=== PATIENT | female | born 1990 | race American Indian/Alaskan Native ===

== ENCOUNTER 2017-01-27 14:36 | Outpatient (CLI) | payer MEDICAID ==
[2017-01-27] MEDS ORDERED: LACTATED RINGERS 1,000 ML IV ONE (14:37)
[2017-01-27 15:58] VITALS: BP 93/36
[2017-01-27 16:01] LABS: Bacteria,Urine 1+ /HPF (Negative); Bilirubin,Urine NEG (Negative); Blood,Urine NEG (Negative); Ketones,Urine NEG (Negative); Leukocyte Esterase,Urine NEG (Negative); Nitrite,Urine NEG (Negative); Protein,Urine <15 mg/dL mg/dL (Negative); Urobilinogen,Urine < 2.0 mg/dL (<2.0)
== END 2017-01-27 16:55 | disposition home or self-care (01) ==
LOC: TRG 14:36
PROVIDERS: ATTEND Obstetrics & Gynecology
DX: Z34.92 Encounter for supervision of normal pregnancy, unspecified, second trimester (principal); Z3A.25 25 weeks gestation of pregnancy
CPT/HCPCS: 81001

== ENCOUNTER 2017-05-07 14:04 | Inpatient (IN) | payer MEDICAID ==
[2017-05-07] MEDS ORDERED: STADOL IV PRN (15:32)
[2017-05-07] MEDS ORDERED: NUBAIN IV PRN (15:32)
[2017-05-07] MEDS ORDERED: BRETHINE SUB-Q PRN (15:32)
[2017-05-07] MEDS ORDERED: ePHEDrine SULFATE IV PRN (15:32)
[2017-05-07] MEDS ORDERED: BRETHINE IVP PRN (15:32)
[2017-05-07] MEDS ORDERED: MINERAL OIL PO PRN (15:32)
[2017-05-07] MEDS ORDERED: SUBLIMAZE IV PRN (15:32)
[2017-05-07] MEDS ORDERED: AMBIEN PO PRN (15:32)
[2017-05-07] MEDS ORDERED: PITOCin/NS 20 UNIT/1000ML DRIP 20 UNITS/1,000 ML BAG IV SCH (16:00)
[2017-05-07] MEDS ORDERED: CERVIDIL VG ONE (16:00)
[2017-05-07] MEDS ORDERED: XYLOCAINE 2% INFILTRATI ONE (16:00)
[2017-05-07] MEDS ORDERED: PITOCin/NS 30 UNIT/500ML 30 UNITS/500 ML BAG IV SCH (16:00)
[2017-05-07] MEDS ORDERED: POLYCILLIN/NS 2 GM/100 ML 2 GM/100 ML BAG IV ONE (16:30)
[2017-05-07 16:43] LABS: Hematocrit 33.1 % (30.3-42.9); Hemoglobin 11.1 gm/dl (10.1-14.3); Mean Corpuscular HGB Conc 34 % (30-34); Mean Corpuscular Hemoglobin 31 pg (28-32); Mean Corpuscular Volume 91 fl (79-97); Platelet Count 249 K/mm3 (140-440); Red Blood Count 3.62 M/mm3 (3.65-5.03); Red Cell Distribution Width 15.2 % (13.2-15.2)
[2017-05-07] MEDS: LACTATED RINGERS 1,000 ML IV SCH (17:16)
[2017-05-07] MEDS: POLYCILLIN/NS 1 GM/50 ML 1 GM/50 ML BAG IV SCH (21:24)
[2017-05-08] MEDS: SUBLIMAZE IV PRN ×3 (01:44→14:48)
[2017-05-08] MEDS: LACTATED RINGERS 1,000 ML IV SCH (01:47)
[2017-05-08] MEDS: POLYCILLIN/NS 1 GM/50 ML 1 GM/50 ML BAG IV SCH ×2 (02:25→08:30)
--- NOTE | 2017-05-08 08:18 | History and Physical Report ---
History of Present Illness Date of examination: 05/08/17 Date of admission: 05/07/17 14:04 History of present illness: 27 yo LMP EDC 05/09/17 @ 39.6 weeks gestation presented to office for routine visit 05/07 with c/o decreased FM. Elected to proceed with induction. First trimester transfer into care at 11 weeks gestation from [place]. Uncomplicated course. She is GBS positive and has received adequate treatment. Received Cervidil during the night. Now awaiting active Pitocin. Past History Past Medical History: no pertinent history Past Surgical History: no surgical history [employer] History: chlamydia Family/Genetic History: hypertension, cancer (breast) Social history: no significant social history, single - Obstetrical History Expected Date of Delivery: 05/09/17 Actual Gestation: 39 Week(s) 6 Day(s) : 2 Para: 1 Number of Living Children: 1 Medications and Allergies Allergies Allergy/AdvReac Type Severity Reaction Status Date / Time No Known Allergies Allergy Unverified 04/09/13 00:48 Home Medications Medication Instructions Recorded Confirmed Last Taken Type No Known Home Medications [No 05/08/17 05/08/17 Unknown History Reported Home Medications] Active Meds: Active Medications Butorphanol Tartrate (Stadol) 2 mg IV Q2H PRN PRN Reason: Pain , Severe (7-10) Ephedrine Sulfate (Ephedrine Sulfate) 10 mg IV Q2M PRN PRN Reason: Hypotension Fentanyl (Sublimaze) 100 mcg IV Q2H PRN PRN Reason: Labor pain Last Admin: 05/08/17 01:44 Dose: 100 mcg Lactated Ringer's (Lactated Ringers) 1,000 mls @ 125 mls/hr IV DIRECT JUAN Last Admin: 05/08/17 01:47 Dose: 125 mls/hr Oxytocin/Sodium Chloride (Pitocin/Ns 20 Unit/1000ml Drip) 20 units in 1,000 mls @ 125 mls/hr IV DIRECT JUAN Oxytocin/Sodium Chloride (Pitocin/Ns 30 Unit/500ml) 30 units in 500 mls @ 1 mls /hr IV TITR JUAN; 1 MILLIUNITS/MIN PRN Reason: Protocol Oxytocin/Sodium Chloride (Pitocin/Ns 30 Unit/500ml) 30 units in 500 mls @ 4 mls /hr IV TITR JUAN PRN Reason: Protocol Ampicillin Sodium (Polycillin/Ns 1 Gm/50 Ml) 1 gm in 50 mls @ 100 mls/hr IV Q4H JUAN PRN Reason: Protocol Last Admin: 05/08/17 02:25 Dose: 100 mls/hr Mineral Oil (Mineral Oil) 30 ml PO QHS PRN PRN Reason: Constipation Nalbuphine HCl (Nubain) 10 mg IV Q2H PRN PRN Reason: Pain, Moderate (4-6) Terbutaline Sulfate (Brethine) 0.25 mg SUB-Q ONCE PRN PRN Reason: Hyperstimulation/Hypertonicity Terbutaline Sulfate (Brethine) 0.25 mg IVP ONCE PRN PRN Reason: Hyperstimulation/Hypertonicity Zolpidem Tartrate (Ambien) 10 mg PO QHS PRN PRN Reason: Insomnia Last Admin: 05/07/17 23:02 Dose: 10 mg Review of Systems All systems: negative Genitourinary: normal appearance, contractions, no vaginal bleeding, no vaginal discharge, no leakage of fluid, no genital sores - Vital Signs Vital signs: Vital Signs Pulse Pulse Ox 103 H 98 05/07/17 15:04 05/07/17 15:04 Temp Pulse Resp BP Pulse Ox 98.1 F 93 H 13 104/58 98 05/07/17 23:06 05/07/17 23:34 05/07/17 23:06 05/07/17 23:09 05/07/17 23:34 - Physical Exam Breasts: Positive: deferred Cardiovascular: Regular rate Abdomen: Positive: normal appearance, soft, normal bowel sounds. Negative: distention Genitourinary (Female): Positive: normal external genitalia, normal perenium Vulva: both: normal - Obstetrical FHR: category 2 FHR comments: minimal variability, No decels. Reactive prior Uterine Contraction Monitor Mode: External Cervical Dilatation: 1.5 Cervical Effacement Percentage: 50 station: -3 Uterine Contraction Frequency (min): 6 Uterine Contraction Duration: 50 Uterine Contraction Pattern: Regular Uterine Tone Measurement Phase: Contraction Uterine Contraction Intensity: Moderate Results Result Diagrams: 05/07/17 16:17 Abnormal lab results 05/07/17 Range/Units 16:17 RBC 3.62 L (3.65-5.03) M/mm3 All other labs normal. Assessment and Plan A: IUP at 36.6 labor induction P: Active Afshin't Pitocin
[2017-05-08] MEDS: PITOCin/NS 30 UNIT/500ML 30 UNITS/500 ML BAG IV SCH ×2 (08:45→09:37)
--- NOTE | 2017-05-08 13:06 | Progress Note ---
Assessment and Plan A: IUP at term Transitional Labor P: Anticipate Subjective - Subjective Date of service: 05/08/17 Interval history: 27 yo LMP EDC 05/09/17 @ 39.6 weeks gestation presented to office for routine visit 05/07 with c/o decreased FM. Elected to proceed with induction. First trimester transfer into care at 11 weeks gestation from [place]. Uncomplicated course. She is GBS positive and has received adequate treatment. Received Cervidil during the night. Now awaiting active Pitocin. Patient reports: new complaints, loss of fluid (clear fluid), movement normal, contractions, no vaginal bleeding Objective - Vital Signs Vital Signs: Vital Signs - 12hr 05/08/17 05/08/17 05/08/17 08:50 08:51 08:55 Pulse Rate 106 H 103 H Respiratory 16 Rate Blood Pressure 114/58 Blood Pressure 114/58 [Left] O2 Sat by Pulse 98 98 97 Oximetry 05/08/17 05/08/17 05/08/17 09:20 10:15 10:20 Pulse Rate 94 H 88 90 Respiratory Rate Blood Pressure 96/51 96/50 92/50 Blood Pressure [Left] O2 Sat by Pulse Oximetry 05/08/17 05/08/17 05/08/17 10:50 10:51 10:55 Pulse Rate 101 H 100 H 100 H Respiratory Rate Blood Pressure 109/61 Blood Pressure [Left] O2 Sat by Pulse 99 97 Oximetry 05/08/17 05/08/17 05/08/17 11:00 11:05 11:22 Pulse Rate 98 H 103 H 109 H Respiratory Rate Blood Pressure 122/66 Blood Pressure [Left] O2 Sat by Pulse 98 97 Oximetry 05/08/17 05/08/17 05/08/17 11:50 12:21 12:23 Pulse Rate 97 H 113 H Respiratory 18 Rate Blood Pressure 140/80 129/82 129/82 Blood Pressure [Left] O2 Sat by Pulse Oximetry 05/08/17 12:50 Pulse Rate 78 Respiratory Rate Blood Pressure 108/57 Blood Pressure [Left] O2 Sat by Pulse Oximetry - Exam Breasts: deferred Abdomen: Present: normal appearance, soft FHR: category 1 FHR comments: early decles Uterine Contraction Monitor Mode: External Cervical Dilatation: 8 Cervical Effacement Percentage: 100 station: -1 Uterine Contraction Frequency (min): 4 Uterine Contraction Duration: 50 Uterine Contraction Pattern: Regular Uterine Tone Measurement Phase: Resting Uterine Contraction Intensity: Strong/Firm - Labs Labs: Abnormal Labs 05/07/17 16:17 RBC 3.62 L Laboratory Results - last 24 hr 05/07/17 05/07/17 05/07/17 16:17 16:17 16:17 WBC 7.1 RBC 3.62 L Hgb 11.1 Hct 33.1 MCV 91 MCH 31 MCHC 34 RDW 15.2 Plt Count 249 RPR Nonreactive Blood Type O POSITIVE Antibody Screen Negative
--- NOTE | 2017-05-08 13:53 | Event Note ---
Date: 05/08/17 Requesting epidural
[2017-05-08] MEDS ORDERED: XYLOCAINE 2% INFILTRATI ONE (14:31)
[2017-05-08] MEDS ORDERED: METHERGINE IM ONE ×2 (14:36→15:17)
--- NOTE | 2017-05-08 15:17 | Procedure Note ---
OB Delivery Note - Delivery Date of Delivery: 05/08/17 (7-9oz female @ 5380) Surgeon: BRIA RAMON Estimated blood loss: 500cc - Vaginal Delivery presentation: vertex Delivery position: OA Delivery induction: cervidil Delivery augmentation: rupture of membranes, pitocin Delivery monitor: external FHT, external uterine Route of delivery: Delivery cord: nuchal cord (loose x 1 reduced), 3 umbilical vessels Delivery laceration: 2nd degree, vaginal side wall (Left vaginal side ortiz) Anesthesia: epidural - Infant A at 1 minute: 8 at 5 minutes: 9 Infant Gender: Male (Pushed to viable male, Stimulated to cry, placed skin to skin. Cord blood collected. Spont. placenta. Pitocin infusing. Heavy vaginal bleeding, Methergine 0.2mg IM. Multiple clots expressed. Bleeding small. Fundus firm 2 below U, ML. Repair of laceration as noted. Heavy bleeding returned. Clots expressed. Fundus firm 2 below U, ML. Bleeding small-moderate. Will continue close monitoring.)
[2017-05-08] MEDS: MOTRIN PO PRN (15:53)
[2017-05-08] MEDS: PERCOCET 5/325 PO PRN ×2 (15:54→19:44)
[2017-05-08] MEDS: DERMOPLAST TP PRN (19:43)
[2017-05-08] MEDS: METHERGINE PO SCH (19:44)
[2017-05-08] MEDS: TUCKS PAD TP PRN (19:44)
[2017-05-09] MEDS: METHERGINE PO SCH ×3 (00:55→12:00)
[2017-05-09 01:25] LABS: Hematocrit 27.6 % (30.3-42.9); Hemoglobin 9.6 gm/dl (10.1-14.3)
[2017-05-09] MEDS: PERCOCET 5/325 PO PRN (04:41)
[2017-05-09] MEDS: MOTRIN PO PRN ×2 (12:00→20:44)
--- NOTE | 2017-05-09 13:47 | Progress Note ---
Assessment and Plan A/P PPD # 1 s/p doing well no complaints bonding with baby H/H stable 11-9.6 on iron d/c home tomorrow Subjective - Subjective Date of service: 05/09/17 Principal diagnosis: s/p Patient reports: appetite normal, voiding normally, pain well controlled, flatus , ambulating normally [place]: doing well Objective - Vital Signs Latest vital signs: Vital Signs Temp Pulse Resp BP BP Pulse Ox 05/09/17 08:39 98.6 F 88 18 115/67 98 05/09/17 01:35 98.3 F 98 H 20 102/55 98 05/08/17 22:20 97.7 F 73 20 106/58 97 05/08/17 17:29 67 107/55 05/08/17 17:27 81 109/56 05/08/17 15:54 18 05/08/17 15:53 18 05/08/17 15:06 90 99 05/08/17 15:00 93 H 100 05/08/17 14:59 91 H 110/54 05/08/17 14:55 89 99 05/08/17 14:48 18 128/59 05/08/17 14:44 101 H 128/59 05/08/17 13:50 105 H 120/58 Intake and Output 05/08/17 05/09/17 05/09/17 23:59 07:59 15:59 Intake Total 240 240 Output Total 700 400 Balance -460 -160 Intake: Oral 240 240 Output: Urine 700 400 Void 700 400 Other: Total, Intake Amount 240 120 Total, Output Amount 400 400 # Voids Void 1 1 - Exam Breasts: Present: normal Cardiovascular: Present: Regular rate, Normal S1 Lungs: Present: Clear to auscultation, Normal air movement Abdomen: Present: normal appearance, soft, normal bowel sounds. Absent: distention, tenderness Vulva: both: normal Uterus: Present: normal, firm, fundal height below umbilicus. Absent: bogginess , tenderness Extremities: Present: normal Deep Tendon Reflex Grade: Normal +2 Incision: Present: normal - Labs Labs: Abnormal lab results 05/09/17 Range/Units 00:59 Hgb 9.6 L (10.1-14.3) gm/dl Hct 27.6 L (30.3-42.9) %
--- NOTE | 2017-05-10 07:45 | Progress Note ---
Assessment and Plan - Patient Problems (1) Decreased movement Current Visit: Yes Status: Acute Plan to address problem: Patient doing well Discharge home Subjective - Subjective Date of service: 05/10/17 Principal diagnosis: s/p Interval history: The patient reports the pain is well-controlled. She has been tolerating a regular diet without complication. Patient reports: appetite normal, voiding normally, pain well controlled : doing well Objective - Vital Signs Latest vital signs: Vital Signs Temp Pulse Resp BP Pulse Ox 05/10/17 07:32 98.4 F 88 18 110/60 05/10/17 00:10 98.3 F 73 18 111/57 98 05/09/17 15:59 98.7 F 79 16 102/60 98 05/09/17 12:25 98.9 F 98 H 18 107/62 99 05/09/17 08:39 98.6 F 88 18 115/67 98 Intake and Output 05/09/17 05/10/17 05/10/17 22:59 06:59 14:59 Intake Total 240 360 Balance 240 360 Intake: Oral 240 360 Other: Total, Intake Amount 120 120 # Voids Void 1 1 - Exam Uterus: Present: normal, firm
--- NOTE | 2017-05-10 07:47 | Discharge Summary ---
Providers - Providers Date of Admission: 05/07/17 14:04 Date of discharge: 05/10/17 Attending physician: LESA APARICIO MD Primary care physician: LESA APARICIO MD Hospitalization Reason for admission: induction of labor Delivery: Discharge diagnosis: IUP at term delivered [place] baby: male Pertinent studies: The patient was admitted secondary to decreased movement and underwent induction of labor. She had a normal spontaneous vaginal delivery. Her course was uncomplicated. Condition at discharge: Good Disposition: DC-01 TO HOME OR SELFCARE - Discharge Diagnoses (1) Decreased movement Status: Acute Plan - Discharge Medications Prescriptions: HYDROcodone/ACETAMINOPHEN [[place] 5-325 Tablet] 1 each PO Q8HR PRN #30 tablet PRN Reason: Pain Ibuprofen [Motrin] 800 mg PO Q8HR PRN #60 tablet PRN Reason: Pain - Provider Discharge Summary Activity: no sex for 6 weeks, no heavy lifting 4 weeks, no strenuous exercise Diet: routine Instructions: routine Additional instructions: [] Smoking cessation referral if applicable(refer to patient education folder for contact #) [] Refer to [facility] Booklet Call your doctor immediately for: * Fever > 100.5 * Heavy vaginal bleeding ( >1 pad per hour) * Severe persistent headache * Shortness of breath * Reddened, hot, painful area to leg or breast * Follow-up 4 weeks - Follow up plan
[2017-05-10] MEDS: DERMOPLAST TP PRN (08:49)
[2017-05-10] MEDS: TUCKS PAD TP PRN (08:49)
[2017-05-10] MEDS: MOTRIN PO PRN (12:55)
[2017-05-10 14:52] VITALS: BP 119/71
== END 2017-05-10 14:54 | disposition home or self-care (01) | DRG 775 ==
LOC: LD 14:04 → OB 05-08 18:18
PROVIDERS: ADMIT Obstetrics & Gynecology; ATTEND Obstetrics & Gynecology
PROC: 10E0XZZ Delivery of Products of Conception, External Approach (ICD-10-PCS; principal; 2017-05-08)
PROC: 0KQM0ZZ Repair Perineum Muscle, Open Approach (ICD-10-PCS; 2017-05-08)
PROC: 3E0P7VZ Introduction of Hormone into Female Reproductive, Via Natural or Artificial Opening (ICD-10-PCS; 2017-05-08)
PROC: 3E0R3BZ Introduction of Anesthetic Agent into Spinal Canal, Percutaneous Approach (ICD-10-PCS; 2017-05-08)
PROC: 00HU33Z Insertion of Infusion Device into Spinal Canal, Percutaneous Approach (ICD-10-PCS; 2017-05-08)
DX: O99.824 Streptococcus B carrier state complicating childbirth (principal); O36.8130 Decreased fetal movements, third trimester, not applicable or unspecified; O69.81X0 Labor and delivery complicated by cord around neck, without compression, not applicable or unspecified; O70.1 Second degree perineal laceration during delivery; Z37.0 Single live birth; Z3A.39 39 weeks gestation of pregnancy
CPT/HCPCS: 36415; 85014; 85018; 85027; 86592; 86706; 86762; 86850; 86900; 86901; 87806; 99211; G0463; J0290; J2210; J2300; J2590; J3010; J7120